=== PATIENT | male | born 1980 | race Caucasian/White ===

== ENCOUNTER → 2017-05-25 | Outpatient (CLI) | payer OTHER, BC ==
[~2017-05-25] MED LIST: ALBUAER19 INH
--- NOTE | 2017-05-25 11:33 | DIAGNOSTIC IMAGING REPORT ---
LEFT FINGER(S) MIN 2 VIEWS ROUTINE HISTORY: 37 years-old Male LEFT HAND 2ND DIGIT acute pain of the left second finger. COMPARISON: Left hand radiographs 03/06/2010 TECHNIQUE: 3 views of the left second digit. FINDINGS: No acute fracture, dislocation or significant degenerative changes identified. The soft tissues are within normal limits without right hepatic foreign body. IMPRESSION: No acute bony abnormality. The above report was generated using voice recognition software. It may contain grammatical, syntax or spelling errors. Electronically signed by: Thomas Pate M.D. 05/25/2017 11:31 AM Dictated Date/Time: 05/25/2017 11:30 AM
== END | disposition home or self-care (01) ==
LOC: C.RAD1850 11:14
PROVIDERS: ATTEND Physician Assistant
DX: M25.542 Pain in joints of left hand (principal); X58.XXXA Exposure to other specified factors, initial encounter

== ENCOUNTER 2018-01-21 10:47 | Emergency (ER) | payer BC, OTHER ==
[~2018-01-21] VITALS: Ht 177.8 cm; Wt 92.0 kg
[2018-01-21 10:57] VITALS: TEMP 36.8; Ht 177.8 cm; Wt 92.0 kg
[2018-01-21 11:03] VITALS: O2SAT 100
[2018-01-21 11:27] LABS: BASO % 0.3 %; BASO ABS # 0.02 K/uL (0-0.2); EOS % 3.3 %; EOS ABS # 0.26 K/uL (0-0.5); HEMATOCRIT 43.1 % (42-52); HEMOGLOBIN 15.1 g/dL (14.0-18.0); IG# 0.01 K/uL (0.00-0.02); LYMPH % 32.6 %; LYMPH ABS # 2.59 K/uL (1.2-3.4); MEAN CELL VOLUME 84.7 fL (80-100); MEAN CORPUSCULAR HEMOGLOBIN 29.7 pg (25-34); MEAN PLATELET VOLUME 10.5 fL (7.4-10.4); MONO % 5.5 %; MONO ABS # 0.44 K/uL (0.11-0.59); NEUT % 58.2 %; NEUT ABS # 4.62 K/uL (1.4-6.5); PLATELET COUNT 226 K/uL (130-400); RED CELL DISTRIBUTION WIDTH CV 12.7 % (11.5-14.5); RED CELL DISTRIBUTION WIDTH SD 39.4 fL (36.4-46.3); WHITE BLOOD COUNT 7.94 K/uL (4.8-10.8)
[2018-01-21 11:34] LABS: ALBUMIN 4.2 gm/dl (3.4-5.0); ALT/SGPT 46 U/L (12-78); AST/SGOT 29 U/L (15-37); BLOOD UREA NITROGEN 17 mg/dl (7-18); CALCIUM 8.6 mg/dl (8.5-10.1); CARBON DIOXIDE 28 mmol/L (21-32); CREATININE 1.12 mg/dl (0.60-1.40); GLUCOSE 120 mg/dl (70-99); LIPASE 209 U/L (73-393); POTASSIUM 3.5 mmol/L (3.5-5.1); SODIUM 138 mmol/L (136-145)
[2018-01-21 11:45] LABS: ALKALINE PHOSPHATASE 47 U/L (45-117); TOTAL PROTEIN 7.5 gm/dl (6.4-8.2)
[2018-01-21 11:50] LABS: PTT PATIENT 25.6 SECONDS (21.0-31.0)
[2018-01-21] MEDS ORDERED: FEXO1TAB49 PO (11:57)
[2018-01-21] MEDS ORDERED: DIPH1TAB87 PO (11:57)
[2018-01-21] MEDS ORDERED: VNTHFA/IN INH (11:57)
--- NOTE | 2018-01-21 12:05 | DIAGNOSTIC IMAGING REPORT ---
CHEST ONE VIEW PORTABLE HISTORY: 37 years-old Male CHEST PAIN acute atypical chest pain COMPARISON: Chest radiographs 11/28/2012 TECHNIQUE: Portable AP view of the chest FINDINGS: Cardiomediastinal and hilar silhouettes are within normal limits. There is no pneumothorax, pleural effusion, focal airspace consolidation or overt pulmonary edema. The bones of the chest appear grossly intact. IMPRESSION: No acute process. The above report was generated using voice recognition software. It may contain grammatical, syntax or spelling errors. Electronically signed by: Thomas Pate M.D. 01/21/2018 12:03 PM Dictated Date/Time: 01/21/2018 12:02 PM
[2018-01-21 12:24] VITALS: BP 133/84; PULSE 67; O2SAT 99
--- NOTE | 2018-01-21 14:02 | EMERGENCY ROOM VISIT NOTE ---
History First contact with patient: 11:00 Chief Complaint: CARDIAC ASSESSMENT Stated Complaint: SHORT OF BREATH,HIGH BP,ARRHYTHMIA Nursing Triage Summary: triage note: Pt reports for the past 4 days shortness of breath, mid chest pain with inspiration, and senstion of his heart beating abrnomally. 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 The patient reports that he has had these symptoms for the past 3-4 days. Approximate 48 hours ago, he reported similar symptoms that lasted approximately 1 hour. The symptoms then went away. Last night while on duty, the patient reports that the symptoms started again. He went to [facility] and bought a drink and cigarettes which seemed to help his discomfort. The patient reports that he has not smoked cigarettes in several years. The patient thought about coming in at that time, but wanted to complete his shift this morning, and now presents for evaluation. The patient is currently asymptomatic. The patient denies any prior history of heart disease. He reports that he did have similar symptoms approximately 5-6 years ago, but those symptoms completely resolved. The patient reports that it felt almost like an anxiety attack, but the patient denies any prior history of anxiety. He denies any significant life stressors at this time. He does report a history of seasonal allergies, and occasionally takes Myriam for symptoms. He has not taken any Myriam over the past few days. When asked about caffeine use , the patient reports that he does drink a lot of coffee and tea over the course of his shift. The patient denies history of thyroid disease. He denies any other recent upper respiratory symptoms. The patient has not noticed any nausea when his palpitations start, but does occasionally feel clammy. Review of Systems HEENT: Denies dizziness, visual problems, hearing loss, tinnitus. Denies difficulty swallowing or oral lesions. PULMONARY: Denies cough, sputum production or hemoptysis. CARDIOVASCULAR: Denies chest pain, dyspnea on exertion, orthopnea or peripheral edema. GASTROINTESTINAL: Denies diarrhea, constipation, nausea, vomiting, or abdominal pain. GENITOURINARY: Denies dysuria, frequency, urgency or nocturia. NEUROLOGIC: Denies history of epilepsy, CVA, TIA or chronic headaches. MUSCULOSKELETAL: Denies history of joint tenderness/swelling. SKIN: Denies rashes or lesions. PSYCHIATRIC: Denies history of depression or mental illness. ENDOCRINE: Denies history of diabetes or thyroid disorders. Past Medical/Surgical History Medical Problems: (1) Asthma, Unspecified Surgical Problems: (1) No history of previous surgery Family History Unremarkable Social History Smoking Status: Current Some Day Smoker Alcohol Use: occasionally Marital Status: Housing Status: lives with family Occupation Status: employed Current/Historical Medications Scheduled Albuterol Hfa (Ventolin Hfa), 2 PUFFS INH Q4H Scheduled PRN Diphenhydramine Hcl (Benadryl Allergy), 25 MG PO HS PRN for ALLERGIES Fexofenadine Hcl (Myriam Allergy), 180 MG PO DAILY PRN for ALLERGIES Physical Exam Vital Signs Date Time Temp Pulse Resp B/P (MAP) Pulse Ox O2 Delivery O2 Flow Rate FiO2 01/21/18 12:24 67 18 133/84 99 01/21/18 11:09 77 01/21/18 11:08 76 18 139/98 98 Room Air 01/21/18 11:03 100 Room Air 01/21/18 10:59 97 Room Air 01/21/18 10:57 36.8 73 18 162/101 97 Room Air Physical Exam CONSTITUTIONAL: Healthy and well nourished. Alert and oriented X 3 with positive affect. Patient does not appear in any acute distress. HEENT: Normocephalic, atraumatic. Pupils equal, round and reactive. Ears and nares are clear. No conjunctival injection or scleral icterus. LYMPHATICS: No cervical chain adenopathy. NECK: Full active range of motion without discomfort. No JVD or carotid bruits. RESPIRATORY: Clear to auscultation bilaterally with no wheezing, crackles, rhonchi or stridor. CARDIOVASCULAR: Regular rate and rhythm with no murmurs, rubs or gallops. GASTROINTESTINAL: Bowel sounds present in all quadrants. Soft and nontender to palpation. MUSCULOSKELETAL: Full range of motion of all joints without discomfort. INTEGUMENTARY: No rash or other significant dermatologic conditions noted. HEMATOLOGIC: No ecchymosis or petechiae noted. NEUROLOGIC: No focal neurologic deficits noted. Medical Decision & Procedures ER Provider Diagnostic Interpretation: My interpretation of an ECG shows a normal sinus rhythm of [address] elevation or other conduction abnormalities. My interpretation of a portable chest x-ray does not show any consolidations, pneumothorax or cardiac prominence. Radiologist report is as follows: CHEST ONE VIEW PORTABLE HISTORY: 37 years-old Male CHEST PAIN acute atypical chest pain COMPARISON: Chest radiographs 11/28/2012 TECHNIQUE: Portable AP view of the chest FINDINGS: Cardiomediastinal and hilar silhouettes are within normal limits. There is no pneumothorax, pleural effusion, focal airspace consolidation or overt pulmonary edema. The bones of the chest appear grossly intact. IMPRESSION: No acute process. Laboratory Results 01/21/18 11:00 Red Blood Count 5.09, Mean Corpuscular Volume 84.7, Mean Corpuscular Hemoglobin 29.7, Mean Corpuscular Hemoglobin Concent 35.0, Mean Platelet Volume 10.5, Neutrophils (%) (Auto) 58.2, Lymphocytes (%) (Auto) 32.6, Monocytes (%) (Auto) 5.5, Eosinophils (%) (Auto) 3.3, Basophils (%) (Auto) 0.3, Neutrophils # (Auto) 4.62, Lymphocytes # (Auto) 2.59, Monocytes # (Auto) 0.44, Eosinophils # (Auto) 0.26, Basophils # (Auto) 0.02 01/21/18 11:00 Test 01/21/18 11:00 White Blood Count 7.94 K/uL (4.8-10.8) Red Blood Count 5.09 M/uL (4.7-6.1) Hemoglobin 15.1 g/dL (14.0-18.0) Hematocrit 43.1 % (42-52) Mean Corpuscular Volume 84.7 fL (80-100) Mean Corpuscular Hemoglobin 29.7 pg (25-34) Mean Corpuscular Hemoglobin Concent 35.0 g/dl (32-36) Platelet Count 226 K/uL (130-400) Mean Platelet Volume 10.5 fL (7.4-10.4) Neutrophils (%) (Auto) 58.2 % Lymphocytes (%) (Auto) 32.6 % Monocytes (%) (Auto) 5.5 % Eosinophils (%) (Auto) 3.3 % Basophils (%) (Auto) 0.3 % Neutrophils # (Auto) 4.62 K/uL (1.4-6.5) Lymphocytes # (Auto) 2.59 K/uL (1.2-3.4) Monocytes # (Auto) 0.44 K/uL (0.11-0.59) Eosinophils # (Auto) 0.26 K/uL (0-0.5) Basophils # (Auto) 0.02 K/uL (0-0.2) RDW Standard Deviation 39.4 fL (36.4-46.3) RDW Coefficient of Variation 12.7 % (11.5-14.5) Immature Granulocyte % (Auto) 0.1 % Immature Granulocyte # (Auto) 0.01 K/uL (0.00-0.02) Prothrombin Time 10.8 SECONDS (9.0-12.0) Prothromb Time International Ratio 1.0 (0.9-1.1) Activated Partial Thromboplast Time 25.6 SECONDS (21.0-31.0) Partial Thromboplastin Ratio 1.0 D-Dimer < 190 ug/L FEU (0-500) Anion Gap 8.0 mmol/L (3-11) Est Creatinine Clear Calc Drug Dose 104.9 ml/min Estimated GFR () 98.1 Estimated GFR (Non- 84.7 BUN/Creatinine Ratio 15.3 (10-20) Calcium Level 8.6 mg/dl (8.5-10.1) Total Bilirubin 0.4 mg/dl (0.2-1) Direct Bilirubin 0.1 mg/dl (0-0.2) Aspartate Amino Transf (AST/SGOT) 29 U/L (15-37) Alanine Aminotransferase (ALT/SGPT) 46 U/L (12-78) Alkaline Phosphatase 47 U/L (45-117) Total Creatine Kinase 199 U/L (39-308) Troponin I < 0.015 ng/ml (0-0.045) Total Protein 7.5 gm/dl (6.4-8.2) Albumin 4.2 gm/dl (3.4-5.0) Lipase 209 U/L (73-393) Thyroid Stimulating Hormone (TSH) 3.640 uIu/ml (0.300-4.500) The above labs were reviewed without any significant abnormalities. ED Course Patient history and physical exam were performed. Nurse's notes were reviewed. Vital signs were reviewed, showing an elevated blood pressure of 162/101. The patient is not tachycardic or febrile. O2 saturation is 97% on room air. On initial exam, the patient is asymptomatic. IV access was established, and labs were drawn. An ECG and portable chest x-ray were normal. Review of labs did not show any acute findings. Troponin, d-dimer, electrolytes and CBC are normal. TSH is also normal. The patient denied any symptoms while in the emergency department. I did review the patient's shelter monitor data to show no other dysrhythmias while in the department. The case was discussed with Dr. Chin, ED attending physician, who agrees with outpatient follow-up with his PCP or cardiology. The patient was encouraged to refrain from caffeine use for now. He was instructed to return to the emergency department for any persistent or worsening symptoms. The patient was happy with plan of care, and voiced understanding of all discharge instructions. The patient was advised that his blood pressures have been elevated in the emergency department. The patient reports that his blood pressures are usually normal. He was encouraged to discuss these with his PCP as well. Medical Decision Patient presents to the emergency department for evaluation of palpitations and shortness of breath that have been intermittent over the past several days. His workup today is not suggestive of myocardial infarction, pulmonary embolus, pneumonia, pneumothorax, electrolyte abnormality, anemia or abnormal thyroid function. It is possible that the caffeine has been causing his symptoms, and the patient was encouraged to refrain from using caffeine for now. I suspect that the patient will require an event or Holter monitor. The patient was given instructions to return to the emergency department for any persistent or worsening symptoms. Medication Reconcilliation Current Medication List: was personally reviewed by me Blood Pressure Screening Patient's blood pressure: Elevated blood pressure Blood pressure disposition: Referred to PCP Impression Primary Impression: Palpitations Additional Impressions: Shortness of breath Elevated blood pressure reading Departure Information Referrals No Doctor, Assigned (PCP) Patient Instructions My [facility] Problem Qualifiers
== END 2018-01-21 12:25 | disposition home or self-care (01) ==
LOC: C.EDB 10:48 → C.EDC 12:25
DX: R06.02 Shortness of breath (principal); R00.2 Palpitations; R03.0 Elevated blood-pressure reading, without diagnosis of hypertension; J45.909 Unspecified asthma, uncomplicated; F17.210 Nicotine dependence, cigarettes, uncomplicated